=== PATIENT | male | born 1965 | race Caucasian/White ===

== ENCOUNTER 2023-04-17 13:31 | Emergency (ER) | payer OTHER ==
[2023-04-17] MEDS ORDERED: DIPHTH,PERTUSS(ACELL),TET 0.5 ML DISP.SYRIN IM ONE ×2 (13:40→13:43)
[2023-04-17] MEDS ORDERED: AMOX TR/POT CLAV 875MG/125MG TABLETS (FP) PO ONE (13:41)
[2023-04-17] MEDS ORDERED: AMOX TR/POT CLAV 875MG/125MG TABLETS (FP) ONE (13:43)
[2023-04-17 13:55] VITALS: BP 131/85; PULSE 94; RESP 18; TEMP 98.7; BMI 22.9
[2023-04-17] MEDS ORDERED: LIDOCAINE HCL 1%, 10 MG/ML (20ML VIAL) ONE (13:56)
== END 2023-04-17 14:47 | disposition home or self-care (01) ==
LOC: FER 13:31
PROC: 0HQKXZZ Repair Right Lower Leg Skin, External Approach (ICD-10-PCS; principal; 2023-04-17)
PROC: 3E0234Z Introduction of Serum, Toxoid and Vaccine into Muscle, Percutaneous Approach (ICD-10-PCS; 2023-04-17)
DX: S81.811A Laceration without foreign body, right lower leg, initial encounter (principal); W54.1XXA Struck by dog, initial encounter; Y92.34 Swimming pool (public) as the place of occurrence of the external cause
CPT/HCPCS: 12002-25; 90471; 90715; 99283-25

== ENCOUNTER 2023-04-27 19:12 | Emergency (ER) | payer OTHER ==
[2023-04-27 19:22] VITALS: BP 122/83; PULSE 97; RESP 16; TEMP 98.8; BMI 22.9
== END 2023-04-27 19:45 | disposition home or self-care (01) ==
LOC: FER 19:12
DX: Z48.02 Encounter for removal of sutures (principal)
CPT/HCPCS: 99282-25